=== PATIENT | male | born 1980 | race Caucasian/White ===

== ENCOUNTER 2021-06-16 22:12 | Emergency (ER) | payer MEDICARE, MEDICAID, SELFPAY ==
--- NOTE | 2021-06-16 | ECG_ITS ---
Test Reason : CP Blood Pressure : / mmHG Vent. Rate : 093 BPM Atrial Rate : 093 BPM P-R Int : 132 ms QRS Dur : 112 ms QT Int : 366 ms P-R-T Axes : 035 -31 002 degrees QTc Int : 455 ms Normal sinus rhythm Left axis deviation Incomplete right bundle branch block Possible Anterior infarct (cited on or before 20-OCT-2012) Abnormal ECG When compared with ECG of 16-MAR-2019 21:38, No significant changes seen Referred By: Generic ED Physician Electronically Signed By:DONNIE GALINDO
--- NOTE | ~2021-06-16 | XR_ITS ---
EXAMINATION: XR CHEST CLINICAL INFORMATION: Chest pain COMPARISON: None TECHNIQUE: 2 views of the chest were obtained. FINDINGS: No significant abnormality is noted involving the heart, lungs, mediastinum, bony thorax or soft tissues. XR/XR chest 2V IMPRESSION: Unremarkable examination.
[2021-06-16 22:29] VITALS: BP 133/94; PULSE 96; RESP 14; TEMP 36.9; O2SAT 98; BMI 28.3
[2021-06-16 23:07] LABS: MANUAL DIFF FLAG NO
[2021-06-16 23:08] LABS: Basophils Percent Auto 0.3 % (0-2); Eosinophils Absolute Auto 0.2 X10*3/uL (0.0-0.4); Eosinophils Percent Auto 2.8 % (0-4); Hematocrit 40.2 % (42.0-52.0); Hemoglobin 13.7 g/dl (14.0-18.0); Imm Gran Abs Auto 0.01 X10*3/uL (0.00-0.03); Imm Gran Pct Auto 0.1 % (0.0-0.4); Lymphocytes Absolute Auto 2.6 X10*3/uL (1.2-4.9); Mean Corpuscular HGB Conc 34.1 g/dl (31.0-36.0); Mean Corpuscular Hemoglobin 28.5 pg (27.0-33.0); Mean Corpuscular Volume 83.6 fL (80.0-98.0); Mean Platelet Volume 9.6 fL (9.4-12.4); Monocytes Absolute Auto 0.6 X10*3/uL (0.1-1.2); Monocytes Percent Auto 8.2 % (2-11); Neutrophils Absolute Auto 3.3 x10*3/uL (2.0-8.3); Neutrophils Percent Auto 49.6 % (45-73); Platelet Count 209 X10*3/uL (160-400); Red Blood Count 4.81 X10*6/uL (4.60-5.80); Red Cell Distribution Width 12.7 % (11.0-16.0); White Blood Count 6.7 X10*3/uL (4.8-10.8)
[2021-06-16 23:22] LABS: COVID-19 Test Negative (Negative)
[2021-06-16 23:23] LABS: Alanine Aminotransferase 34 U/L (0-40); Alkaline Phosphatase 98 U/L (39-117); Anion Gap 10 (12-20); Aspartate Amino Transferase 20 U/L (5-37); Bilirubin Direct < 0.2 mg/dL (0.0-0.5); Bilirubin Total 0.3 mg/dL (0.0-1.0); Blood Urea Nitrogen 11 mg/dL (9-16); Calcium 9.1 mg/dL (8.4-10.2); Carbon Dioxide 28 mmol/L (22-29); Chloride 105 mmol/L (96-108); Creatinine Clr Calc Pharmacy 121.1; Estimated Glomerular Filt Rate > 60; Glucose Random 91 mg/dL (60-115); Lipase 15 U/L (8-78); Potassium 3.6 mmol/L (3.3-5.1); Sodium 139 mmol/L (135-145); Total Protein 7.5 g/dL (6.5-8.0)
[2021-06-16 23:26] LABS: Troponin-I High Sensitivity < 3.5 ng/L (<3.5-35.0)
[2021-06-17 03:37] LABS: Appearance Urine CLEAR; Color Urine YELLOW; Glucose Urine UA NEG (NEG); Leukocyte Esterase Urine NEG (NEG); Nitrite Urine NEG (NEG); Specific Gravity - Urine 1.025 (1.005-1.025); Urine Blood NEG (NEG); Urine Ketones NEG (NEG); Urine Protein NEG (NEG-TRACE)
--- NOTE | 2021-06-17 03:52 | ED.CHESTPAIN ---
HPI - Chest Pain General Chief Complaint: Chest Pain Stated Complaint: Chest pain Time Seen by Provider: 06/16/21 23:06 Source: patient Mode of arrival: ambulatory History of Present Illness HPI narrative: 40-year-old male with history of schizophrenia states that he was driving into work at approximately 20:00 this evening when he developed some pinching, chest pain, nonradiating and not associated with shortness of breath, nausea, dizziness but states some diaphoresis. Patient denies any association with fever, chills, worsening with deep inspiration or movement. Patient is currently asymptomatic and states that the pain was always transient. Otherwise, patient denies any GI or symptoms. Related Data Allergies Allergy/AdvReac Type Severity Reaction Status Date / Time acetaminophen [From TYLENOL] Allergy Unknown VOMITING Unverified 12/03/19 17:48 Review of Systems Review of Systems: Pertinent positives and negatives as stated in HPI 10 point review of systems is otherwise negative. PMFSH Past Medical History Source: nursing notes reviewed Social History Social History Advance Directives: No Physical Exam Vital Signs: Vital Signs: Last Vital Signs Temp 98.5 F 06/16/21 22:29 Pulse 96 06/16/21 22:29 Resp 14 06/16/21 22:29 BP 133/94 H 06/16/21 22:29 Pulse Ox 98 06/16/21 22:29 BMI result Body Mass Index 28.3 VITAL SIGNS: Reviewed. GENERAL: Well developed, well nourished, in no acute distress. HEAD: Normocephalic/atraumatic EYES: PERRLA, EOMI EARS: Ext canals without abnormality, TMs non-bulging and non-erythematous NOSE: Nares patent bilateral OROPHARYNX: no oral lesions noted, posterior pharynx clear and non-erythematous without noted tonsillar enlargement/erythema/exudates NECK: Supple, no adenopathy LUNGS: Normal breath sounds. No adventitious sounds or accessory muscle use. SpO2<98> CARDIOVASCULAR: Regular rate and rhythm without noted murmurs ABDOMEN: Soft, non-tender, non-distended with bowel sounds. SKIN: Inspection of the skin reveals no rashes NEUROLOGIC: Alert and oriented x 4. Strength and sensation to light touch were grossly intact x 4. Course Course Course Narrative: 40-year-old male with history and clinical presentation most consistent with a costochondritis as patient is PERC negative and on review of all investigations there are no acute findings to suggest pancreatitis, pneumonia. Patient was informed of all results. Patient was instructed to follow-up with his primary care provider on Saturday morning. Patient is otherwise discharged home in stable condition. MDM - Chest Pain Lab Data Result diagrams: 06/16/21 22:59 06/16/21 22:59 Labs: Lab Results 06/16/21 06/16/21 06/16/21 Range/Units 22:59 22:59 22:59 WBC 6.7 (4.8-10.8) X10*3/uL RBC 4.81 (4.60-5.80) X10*6/uL Hgb 13.7 L (14.0-18.0) g/dl Hct 40.2 L (42.0-52.0) % MCV 83.6 (80.0-98.0) fL MCH 28.5 (27.0-33.0) pg MCHC 34.1 (31.0-36.0) g/dl RDW 12.7 (11.0-16.0) % Plt Count 209 (160-400) X10*3/uL MPV 9.6 (9.4-12.4) fL Immature Gran % (Auto) 0.1 (0.0-0.4) % Neut % (Auto) 49.6 (45-73) % Lymph % (Auto) 39.0 (20-40) % [place] % (Auto) 8.2 (2-11) % Eos % (Auto) 2.8 (0-4) % Baso % (Auto) 0.3 (0-2) % Lymph # (Auto) 2.6 (1.2-4.9) X10*3/uL [place] # (Auto) 0.6 (0.1-1.2) X10*3/uL Eos # (Auto) 0.2 (0.0-0.4) X10*3/uL Baso # (Auto) 0.0 (0.0-0.2) X10*3/uL Abs Immat Gran (auto) 0.01 (0.00-0.03) X10*3/uL Absolute Neuts (auto) 3.3 (2.0-8.3) x10*3/uL Absolute Nucleated RBC 0.000 (0.0-0.012) X10*3/uL Nucleated RBC % (auto) 0.0 (0.0-0.2) /100WBC Sodium 139 (135-145) mmol/L Potassium 3.6 (3.3-5.1) mmol/L Chloride 105 (96-108) mmol/L Carbon Dioxide 28 (22-29) mmol/L Anion Gap 10 L (12-20) BUN 11 (9-16) mg/dL Creatinine 0.93 (0.5-1.4) mg/dL Estim Creat Clear Calc 121.1 Estimated GFR > 60 Random Glucose 91 (60-115) mg/dL Calcium 9.1 (8.4-10.2) mg/dL Total Bilirubin 0.3 (0.0-1.0) mg/dL Direct Bilirubin < 0.2 (0.0-0.5) mg/dL AST 20 (5-37) U/L ALT 34 (0-40) U/L Alkaline Phosphatase 98 (39-117) U/L Troponin I High Sens < 3.5 (<3.5-35.0) ng/L Total Protein 7.5 (6.5-8.0) g/dL Albumin 4.0 (3.5-5.0) g/dL Lipase 15 (8-78) U/L Urine Color Urine Appearance Urine pH (5.0-8.0) Ur Specific [place] (1.005-1.025) Urine Protein (NEG-TRACE) MG/DL Urine Glucose (UA) (NEG) MG/DL Urine Ketones (NEG) MG/DL Urine Blood (NEG) Urine Nitrite (NEG) Ur Leukocyte Esterase (NEG) COVID-19 (ISABEL) (Negative) COVID-19 Clin Com 06/16/21 06/17/21 Range/Units 22:59 03:31 WBC (4.8-10.8) X10*3/uL RBC (4.60-5.80) X10*6/uL Hgb (14.0-18.0) g/dl Hct (42.0-52.0) % MCV (80.0-98.0) fL MCH (27.0-33.0) pg MCHC (31.0-36.0) g/dl RDW (11.0-16.0) % Plt Count (160-400) X10*3/uL MPV (9.4-12.4) fL Immature Gran % (Auto) (0.0-0.4) % Neut % (Auto) (45-73) % Lymph % (Auto) (20-40) % [place] % (Auto) (2-11) % Eos % (Auto) (0-4) % Baso % (Auto) (0-2) % Lymph # (Auto) (1.2-4.9) X10*3/uL [place] # (Auto) (0.1-1.2) X10*3/uL Eos # (Auto) (0.0-0.4) X10*3/uL Baso # (Auto) (0.0-0.2) X10*3/uL Abs Immat Gran (auto) (0.00-0.03) X10*3/uL Absolute Neuts (auto) (2.0-8.3) x10*3/uL Absolute Nucleated RBC (0.0-0.012) X10*3/uL Nucleated RBC % (auto) (0.0-0.2) /100WBC Sodium (135-145) mmol/L Potassium (3.3-5.1) mmol/L Chloride (96-108) mmol/L Carbon Dioxide (22-29) mmol/L Anion Gap (12-20) BUN (9-16) mg/dL Creatinine (0.5-1.4) mg/dL Estim Creat Clear Calc Estimated GFR Random Glucose (60-115) mg/dL Calcium (8.4-10.2) mg/dL Total Bilirubin (0.0-1.0) mg/dL Direct Bilirubin (0.0-0.5) mg/dL AST (5-37) U/L ALT (0-40) U/L Alkaline Phosphatase (39-117) U/L Troponin I High Sens (<3.5-35.0) ng/L Total Protein (6.5-8.0) g/dL Albumin (3.5-5.0) g/dL Lipase (8-78) U/L Urine Color YELLOW Urine Appearance CLEAR Urine pH 6.0 (5.0-8.0) Ur Specific [place] 1.025 (1.005-1.025) Urine Protein NEG (NEG-TRACE) MG/DL Urine Glucose (UA) NEG (NEG) MG/DL Urine Ketones NEG (NEG) MG/DL Urine Blood NEG (NEG) Urine Nitrite NEG (NEG) Ur Leukocyte Esterase NEG (NEG) COVID-19 (ISABEL) Negative (Negative) COVID-19 Clin Com See Note ECG Data ECG #1: Attestation: I personally reviewed and interpreted this ECG as follows: Prior ECG tracings: available for review Interpretation: NSR, HR-93, no STEMI, CA/QTC are within normal limits. Discharge Plan Discharge Clinical Impression: Atypical chest pain, Costalchondritis, Cough, Lab test negative for COVID-19 virus Patient Disposition: Home, Self-Care Instructions: Chest Wall Pain (ED), Costochondritis (ED) Additional Instructions: 1. Resume all home medications as prescribed. 2. Recommend [id number] Cepacol for sore throat, ekca-cvm-montvni cough medicine for your cough. 3. Recommend [id number]-[id number] Tylenol/ibuprofen as needed for your chest wall pain. 4. Follow-up with your primary care provider on Saturday morning. Return to the ER for worsening symptoms. Referrals: Epi English III, MD [Primary Care Provider] - 2 days
[2021-06-17 03:55] VITALS: BP 139/97; PULSE 76; RESP 14; O2SAT 98
[2021-06-17] MEDS: Throat Lozenge, Medicated LOZENGE 1 LOZENGE MUCOUS MEM (03:57)
== END 2021-06-17 04:11 | disposition home or self-care (01) ==
PROVIDERS: Emergency Provider Student in an Organized Health Care Education/Training Program; PCP Internal Medicine
DX: R07.89 Other chest pain (principal); M94.0 Chondrocostal junction syndrome [Tietze]; Z20.822 Contact with and (suspected) exposure to COVID-19; R05.9 Cough, unspecified
CPT/HCPCS: 36415; 71046; 80053; 81003; 82248; 83690; 84484; 85025; 87635; 93005; 99283; 99284

== ENCOUNTER 2022-03-05 17:36 | Emergency (ER) | payer MEDICARE, MEDICAID, SELFPAY | END 2022-03-05 20:19 | disposition left against medical advice (07) | PROVIDERS: Emergency Provider Emergency Medicine; PCP Internal Medicine | DX: R05.9 Cough, unspecified (principal); J02.9 Acute pharyngitis, unspecified ==

== ENCOUNTER 2023-11-17 13:55 | Emergency (ER) | payer MEDICARE, MEDICAID, SELFPAY ==
[2023-11-17 14:58] VITALS: BP 119/85; PULSE 85; RESP 16; TEMP 36.9; O2SAT 97; BMI 27.5
--- NOTE | 2023-11-17 14:58 | ED_ITS ---
HPI - Extremity Injury (Lower) General Chief Complaint: Extremity Problem Stated Complaint: ingrown toenail Time Seen by Provider: 11/17/23 17:21 Source: patient Mode of arrival: ambulatory Limitations: no limitations History of Present Illness ED Provider: carmen morris pa-c HPI Narrative: 43-year-old male with no significant past medical history presents to the ED today for evaluation of ingrown toenail to left great toe x2 weeks. States he was seen by his PCP who prescribed him Keflex 500 mg TID. Patient admits that he was not taking this as prescribed however eventually completed the course. Reports continued pain and swelling around the nail fold of his left great toenail. Attempted to soak in Epsom salt yesterday without relief. No qmsb-pvm-cnwpnuj pain meds prior to arrival. Denies fever, chills, drainage from the area. Denies trauma/ injury to the toe. Related Data Previous Rx's ?Medication ?Instructions ?Recorded doxycycline hyclate 100 mg tablet 100 mg PO BID 7 days #14 tabs 11/17/23 Allergies Allergy/AdvReac Type Severity Reaction Status Date / Time No Known Allergies Allergy Verified 11/17/23 15:00 Review of Systems Review of Systems: Constitutional: No fever, chills, fatigue, night sweats, weight changes ENT/Mouth: No ear pain, hearing loss, nasal congestion, sinus pain, rhinorrhea, sore throat Eyes: No eye pain, swelling, redness, vision changes, discharge Cardio: No chest pain, palpitations, VALLE, orthopnea, peripheral edema Pulm: No SOB, cough, sputum, wheezing, dyspnea, hemoptysis GI: No nausea, vomiting, hematemesis, abdominal pain, diarrhea, constipation, hematochezia, melena : No irregular bleeding, dysuria, frequency, urgency, hesitancy, hematuria, flank pain, urinary flow changes, urinary incontinence or retention MSK: No back pain, neck pain, joint pain, myalgias Skin: No lesions, rashes, +ingrown toe nail Neuro: No weakness, numbness, paresthesias, LOC, dizziness, headache Psych: No anxiety/panic, depression, SI/HI, AH/VH All other systems reviewed and are negative. [facility] Past Medical History Attestation statement: The following information was validated with the patient. Source: old records reviewed and nursing notes reviewed Social History Social History Advance Directives: No Advance Directives Information Provided: No Physical Exam Vital Signs: Vital Signs: Last Vital Signs Temp 98.4 F 11/17/23 14:58 Pulse 85 11/17/23 14:58 Resp 16 11/17/23 14:58 BP 119/85 11/17/23 14:58 Pulse Ox 97 11/17/23 14:58 O2 Del Method Room Air 11/17/23 14:58 BMI result Body Mass Index 27.5 Vital signs stable, afebrile. General: Well appearing, in no acute distress. Skin: Warm, dry, intact. +noted swelling/ erythema surrounding the left great toe nail. no noted drainage or pointing. ingrown nail along lateral nail fold. Head: Normocephalic, atraumatic. EENT: Hearing is intact b/l. Conjunctiva clear. Sclera is anicteric. PERRLA. EOM intact. Moist mucous membranes.? Neck: Supple without LAD. FROM. Trachea midline.? Cardiac: Chest wall symmetric. RRR Lungs: Normal respiratory effort without accessory muscle use Neuro: AOx3. Normal speech. Ambulating with steady gait. Psych: Appropriate mood and affect. Responds appropriately to questions. Course Course Course Narrative: This is a Rapid Medical Exam performed in triage by Yanet Ramos PA-C. Full HPI, ROS and PE to be performed by primary ED provider. 43 yo M presenting to the ED c/o painful ingrown toenail to L great toe x2 weeks. Took abx w/o relief. also has been soaking PE: +ingrown toenail to L great toe. no surrounding erythema [place] [facility] Reevaluation(s) Reevaluation #1: 9521 -- ingrown toenail of left great toe lateral nail fold removed. Patient tolerated procedure well. Patient placed in postop shoe for comfort. Pressure dressing applied. Bleeding controlled. Advised patient to follow-up with galley worker. He tells me that he has an appointment for December. Will provide him with referral to [facility] [place] to see if he can get an appointment sooner. Patient has remained stable throughout ED visit today. Discussed worrisome signs and symptoms and when to return to the ED. All questions answered at this time. Patient is agreeable with disposition and stable for discharge. Medications Administered Discontinued Medications Generic Name Dose Route Start Last Admin Trade Name Mady PRN Reason Stop Dose Admin Lidocaine HCl 5 ml 11/17/23 17:21 11/17/23 17:49 Lidocaine Hcl 1 % Mpf 5 Ml Vial INFILTRATI 11/17/23 17:22 5 ml ONCE ONE Administration Lidocaine HCl 5 ml 11/17/23 17:22 11/17/23 17:49 Lidocaine Hcl 1 % Mpf 5 Ml Vial INFILTRATI 11/17/23 17:23 5 ml ONCE ONE Administration Medical Decision Making Medical Decision Making MDM Narrative: 43-year-old male with no significant past medical history presents to the ED today for evaluation of ingrown toenail to left great toe x2 weeks. Vital signs stable. Afebrile. On exam, there is noted swelling/ erythema surrounding the lef t great toe nail. no noted drainage or pointing. ingrown nail along lateral nail fold. 2+ PT/DP pulse intact. Ambulating with steady gait. Differential diagnosis includes paronychia, ingrown toenail, cellulitis Plan for ingrown toenail removal, paronychia drainage and disposition Differential Diagnosis Differential Diagnoses: The differential diagnosis associated with the presentation includes As above Admission/Observation Not indicated Prescription Management I considered prescription management with: Pain Medication and Antibiotic (Doxycycline) Social Determinants Patient?s care significantly limited by Social Determinants of Health including: Other Social Determinant of Health Procedures Abscess I/D Site: foot (great toe) Side (if applicable): left Local Anesthetic: lidocaine 1% Amount of anesthesia used (mL): 10 Technique: incised with blade Amount of fluid expressed (mL): 2 Sent for culture/gram staining?: No Irrigation: Yes Packing used?: none Complications: pain Critical Care Time Critical Care Time Critical Care Time: No Discharge Plan Discharge Clinical Impression: Paronychia of great toe of left foot, Ingrowing toenail of left foot Patient Disposition: Home, Self-Care Instructions: Paronychia (ED), Ingrown Nail (ED), Nail Removal (ED) Additional Instructions: You were seen in the ED today for ingrown toenail/ infection. The ingrown toe nail was removed with dressing applied. You may remove the dressing tomorrow morning. You were also provided with a postop shoe to wear as needed for comfort. Doxycycline is an antibiotic that has been sent to your pharmacy for treatment. Take this twice daily for 7 days. Take this as prescribed, do not miss any doses as this may cause infection to persist or worsen. Continue soaking the toe in Epsom salt. You may also apply warm compresses to help draw the infection out. Keep your appointment with galley worker in December. You have also been provided with a referral to [facility] pod[facility]. You may call them to see if they can get you in any sooner. They will not call you. Follow up with your PCP as needed. Return with new or worsening symptoms. In the case of an emergency call 911. Prescriptions: New doxycycline hyclate 100 mg tablet 100 mg PO BID 7 Days Qty: 14 0RF Referrals: Hermelindo Dent MD [Physician] - Print Language: Latvian
[2023-11-17] MEDS: Lidocaine HCl 1 % MPF 5 ML VIAL INFILTRATI ×2 (17:49)
[2023-11-17 18:27] VITALS: BP 140/78; PULSE 82; RESP 19; TEMP 36.6; O2SAT 98
[2023-11-17 18:28] VITALS: BP 140/78; PULSE 82; RESP 19; TEMP 36.6; O2SAT 98
== END 2023-11-17 18:32 | disposition home or self-care (01) ==
PROVIDERS: Emergency Provider Emergency Medicine Emergency Medical Services; PCP Internal Medicine
DX: L03.032 Cellulitis of left toe (principal); L60.0 Ingrowing nail
CPT/HCPCS: 10060; 99282; 99284

== ENCOUNTER 2024-05-02 01:28 | Emergency (ER) | payer MEDICARE, MEDICAID, SELFPAY ==
[2024-05-02 01:33] VITALS: BP 137/77; PULSE 80; O2SAT 100
[2024-05-02 01:39] VITALS: BP 116/84; PULSE 75; RESP 18; TEMP 36.4; O2SAT 98; BMI 27.3
[2024-05-02 02:05] LABS: Appearance Urine Clear; Color Urine Yellow; Glucose Urine UA Negative (Negative); Leukocyte Esterase Urine Negative (Negative); Nitrite Urine Negative (Negative); PH 6.5 (5.0-9.0); Specific Gravity - Urine 1.015 (1.005-1.025); Urine Blood Negative (Negative); Urine Ketones Negative (Negative); Urine Protein Negative (Neg-Trace)
[2024-05-02 02:10] LABS: Bacteria Urine None Seen (None Seen); Hyaline Casts Urine 0-2 /LPF (0-2); RBC Urine 0-2 /HPF (0-2); Squamous Epithelial Cell Urine 0-2 /HPF (0-2); WBC Urine 0-5 /HPF (0-5)
--- NOTE | 2024-05-02 02:14 | ED_ITS ---
HPI - General Adult General Chief complaint: General Medical Stated complaint: MEDICAL EVAL Time Seen by Provider: 05/02/24 03:57 Source: patient and EMS Mode of arrival: EMS Limitations: no limitations History of Present Illness ED Provider: HPI narrative: Patient works as a systems security analyst noted to be very sleepy and passing out recently diagnose schizophrenia patient denied any substance abuse says that he is very sleepy because he did not sleep well denies any substance abuse after arrival patient noted to be sleeping no chest pain no shortness a breath Related Data Previous Rx's ?Medication ?Instructions ?Recorded doxycycline hyclate 100 mg tablet 100 mg PO BID 7 days #14 tabs 11/17/23 Allergies Allergy/AdvReac Type Severity Reaction Status Date / Time No Known Allergies Allergy Verified 05/02/24 01:40 Review of Systems Review of Systems: Yes all other systems are reviewed and are negative [facility] Social History Social History Smoked in Last 30 Days: No Use of substances other than those prescribed or required for medical reasons: No Advance Directives: No Advance Directives Information Provided: Yes Physical Exam ED Vital Signs: Vital Signs - 24 hr 05/02/24 06:16 05/02/24 06:23 Temperature 96.9 F 96.9 F Pulse Rate 73 73 Respiratory Rate 12 12 Blood Pressure 149/97 H 149/97 H Pulse Oximetry 99 99 Oxygen Delivery Method Room Air Room Air BMI result Body Mass Index 27.3 Appearance: Alert. Oriented X3. No acute distress. Sleepy but arousable Eyes: PERRLA, No Nystagmus ENT: Pharynx normal. Oral Mucosa moist atraumatic normocephalic Neck: Normal inspection. Neck supple. CVS: Normal heart rate and rhythm. Pulses normal. Respiratory: No respiratory distress. Equal air entry bilateral, no wheezing/rales/rhonchi Abdomen: Soft and nontender. Bowel sounds are present, no mass palpable, no CVA tenderness Skin: Skin warm and dry. Normal skin color. Normal skin turgor. Extremities: No lower extremity edema. No calf tenderness Neuro: Oriented X 3. No motor deficit. No sensory deficit.No cerebellar signs , cranial nerves II-XII intact Medical Decision Making Medical Decision Making [facility] Narrative: Patient is very lethargic says that he is very tired no new medication per records patient has been on Klonopin and Zyprexa your tox is negative were any drugs patient woke up and alert oriented x3 ambulatory in steady gait will discharge patient home advised not to combine his medication together sleep well before going to the work Lab Data [facility] Lab Attestation statement: I reviewed the patient's lab results. Labs: Lab Results 05/02/24 05/02/24 Range/Units 01:54 01:55 Urine Color Yellow Urine Appearance Clear Urine pH 6.5 (5.0-9.0) Ur Specific [place] 1.015 (1.005-1.025) Urine Protein Negative (Neg-Trace) mg/dL Urine Glucose (UA) Negative (Negative) mg/dL Urine Ketones Negative (Negative) mg/dL Urine Blood Negative (Negative) Urine Nitrite Negative (Negative) Ur Leukocyte Esterase Negative (Negative) Urine RBC 0-2 (0-2) /HPF Urine WBC 0-5 (0-5) /HPF Ur Squamous Epith Cells 0-2 (0-2) /HPF Urine Bacteria None Seen (None Seen) Hyaline Casts 0-2 (0-2) /LPF Urine Opiates Screen Not Detected (Not Detect) Ur Buprenorphine Scrn Not Detected (Not Detect) ng/mL Ur Oxycodone Screen Not Detected (Not Detect) ng/mL Urine Methadone Screen Not Detected (Not Detect) ng/mL Urine Fentanyl Screen Not Detected (Not Detect) Ur Barbiturates Screen Not Detected (Not Detect) Ur Phencyclidine Scrn Not Detected (Not Detect) Ur Amphetamines Screen Not Detected (Not Detect) U Benzodiazepines Scrn Not Detected (Not Detect) Urine Cocaine Screen Not Detected (Not Detect) U Marijuana (THC) Screen Not Detected (Not Detect) Discharge Plan Discharge Clinical Impression: Lethargy Patient Disposition: Home, Self-Care Instructions: Fatigue (ED) Additional Instructions: Sleep well and take your medication as prescribed do not take any medication which is not prescribed Follow up with your PCP Prescriptions: No Action doxycycline hyclate 100 mg tablet 100 mg PO BID 7 Days Qty: 14 0RF Interventions: ED Discharge Assessment Last Done: 05/02/24 06:23 Discharge Date/Time: 05/02/24 06:24 Print Language: Arabic
[2024-05-02 02:21] LABS: Amphetamine Screen Urine Not Detected (Not Detect); Barbiturates, Urine Not Detected (Not Detect); Benzodiazepines Screen Urine Not Detected (Not Detect); Buprenorphine Scr Not Detected (Not Detect); Cannabinoid Screen Urine Not Detected (Not Detect); Cocaine Screen Urine Not Detected (Not Detect); Fentanyl, urine Not Detected (Not Detect); Methadone Screen, Urine Not Detected (Not Detect); Opiate Screen Urine Not Detected (Not Detect); Oxycodone Screen Urine Not Detected (Not Detect); Phencyclidine Screen Urine Not Detected (Not Detect)
[2024-05-02 06:16] VITALS: BP 149/97; PULSE 73; RESP 12; TEMP 36.1; O2SAT 99
[2024-05-02 06:23] VITALS: BP 149/97; PULSE 73; RESP 12; TEMP 36.1; O2SAT 99
== END 2024-05-02 06:24 | disposition home or self-care (01) ==
PROVIDERS: Emergency Provider Internal Medicine; PCP Internal Medicine
DX: R53.83 Other fatigue (principal); Z51.81 Encounter for therapeutic drug level monitoring; Z79.899 Other long term (current) drug therapy
CPT/HCPCS: 80307; 81001; 99284

== ENCOUNTER 2024-11-04 11:22 | Emergency (ER) | payer OTHER, SELFPAY ==
--- NOTE | ~2024-11-04 | CT_ITS ---
EXAMINATION: CT HEAD WITHOUT CONTRAST CLINICAL INFORMATION: Trauma COMPARISON: None available. TECHNIQUE: Contiguous axial imaging was performed from the skull base to vertex without intravenous administration of contrast. This CT examination was performed using dose optimization techniques as appropriate, variously including the following: *Automated exposure control *Adjustment of mA and/or kV according to patient size (this includes techniques or standardized protocols for targeted exams where dose is matched to indication/reason for exam; i.e. extremities or head) *Use of iterative reconstruction technique DLP: 1071 mGY*cm FINDINGS: There is no acute ischemic change. There is no intracranial hemorrhage. There is no mass-effect or midline shift. Basal cisterns and ventricles are within normal limits for age/cerebral volume. Orbits are symmetrical and unremarkable. Paranasal sinuses and mastoid air cells are pneumatized. There are no bony abnormalities. CT/CT head/brain wo IV con IMPRESSION: No acute intracranial abnormality. Electronically signed by: Izaiah Molina MD 11/04/2024 02:08 PM EDT
--- NOTE | ~2024-11-04 | CT_ITS ---
EXAMINATION: CT CERVICAL SPINE WITHOUT CONTRAST CLINICAL INFORMATION: Trauma COMPARISON: None available. TECHNIQUE: Axial imaging was performed from the base of the skull through T2 without IV contrast. Coronal and sagittal reformatted images were generated from the original axial data set. ALARA: The examination used one or more of the following radiation dose reduction techniques: Automated exposure control, iterative reconstruction, and/or adjustment of mA and/or KV. DLP: 1071 mGY*cm FINDINGS: There is straightening of cervical lordosis. There is no prevertebral soft tissue swelling. Small uncovertebral osteophyte are present throughout most of the first cervical spine. C6-7: There is mild disc space narrowing with endplate and uncovertebral osteophytes resulting in [id number] foraminal narrowing on the left and mild on the right. No fracture line is identified. CT/CT cervical spine wo IV con IMPRESSION: Degenerative changes most advanced at C6-7. No acute abnormality was evident. Electronically signed by: Izaiah Molina MD 11/04/2024 02:11 PM EDT
--- NOTE | ~2024-11-04 | XR_ITS ---
EXAMINATION: XR CHEST CLINICAL INFORMATION: trauma COMPARISON: June 17, 2021 TECHNIQUE: 2 views of the chest were obtained. FINDINGS: No hyperinflation. No consolidation pleural effusion or pneumothorax. Cardiomediastinal silhouette size is normal. Mild multilevel thoracic spondylosis. XR/XR chest 2V IMPRESSION: No acute airspace disease. Stable chest. Electronically signed by: Pedrito Means MD 11/04/2024 12:41 PM EDT
[2024-11-04 11:32] VITALS: BP 130/80; PULSE 83; O2SAT 99
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
[2024-11-04 12:23] VITALS: BP 124/72; PULSE 78; RESP 18; TEMP 36.2; O2SAT 98; BMI 25.9
[2024-11-04 15:13] VITALS: BP 124/92; PULSE 70; RESP 16; TEMP 36.4; O2SAT 98
[2024-11-04 15:23] VITALS: BP 124/92; PULSE 70; RESP 16; TEMP 36.4; O2SAT 98
--- OUTSIDE RECORDS SUMMARY | 2024-11-04 16:13 | XMS_ITS | Clinical Summary ---
Author Organization [facility] [place] Address [address] [place] [address] Care Team Providers [employer] Name Role Phone Epi English MD Primary Care Provider [phone] Allergies Active Allergy Reactions Criticality Noted Date Comments Other 04/07/2014 Seasonal Allergies Other Reaction(s): Runny Nose/Rhinitis Medications benztropine (COGENTIN) 1 mg tablet TAKE 1 TABLET BY MOUTH DAILY 8 Active cephalexin (KEFLEX) 500 mg capsule Take 1 Capsule by mouth 3 times daily (with meals). 4 Active OLANZapine (ZyPREXA) 10 mg tablet 3 Active OLANZapine (ZyPREXA) 7.5 mg tablet 3 Active silver sulfADIAZINE (SILVADENE, SSD) 1 % cream Apply topically to nail bed daily 4 Active butalbital-acetam inophen-caffeine (FIORICET, ESGIC) 50-325-40 mg per tablet Take 1 tablet by mouth every 4 (four) hours if needed for headaches. 30 tablet 5 Active omeprazole (PriLOSEC) [address] capsule TAKE 1 CAPSULE BY MOUTH DAILY 90 capsule 1 5 Active Active Problems Problem Noted Date Diagnosed Date Weight loss 07/24/2017 Abnormal CXR 07/23/2017 Absolute anemia 07/23/2017 Scrotal cyst 06/06/2017 Overview (01/27/2024): Scrotal US: IMPRESSION: No significant scrotal pathology. 4 mm extratesticular right hemiscrotal calcification likely representing a scrotolith. Referred to urology. PLMD (periodic limb movement disorder) 7 Snoring 11/05/2016 Overview (01/27/2024): 10/2016 Diagnostic study did not show sleep apnea. Referred to primary care for PLMD. GERD (gastroesophageal reflux disease) 6 Migraine 03/14/2016 Dyspepsia 01/13/2016 Schizophrenia (CMS/HCC V24, CMS/HCC V28) 015 Encounters Date Type Department Care Team Description 10/16/2024 3:00 PM EDT Office Visit Adult Medicine [address] [phone] Epi English MD Gastroesophageal reflux disease without esophagitis (Primary Dx); Schizophrenia, unspecified type (CMS/HCC V24, CMS/HCC V28); High cholesterol; Other migraine without status migrainosus, not intractable 09/28/2024 1:00 PM EDT Office Visit [address] [phone] Orly Varela NP Care plan discussed with patient (Primary Dx); Schizophrenia, unspecified type (CMS/HCC V24, CMS/HCC V28); PLMD (periodic limb movement disorder); Other migraine without status migrainosus, not intractable 08/21/2024 9:30 AM EDT Clinical Support [address] [phone] Visit for suture removal (Primary Dx) 08/19/[address] [phone] Maryjane Elder MA 08/07/2024 10:00 AM EDT Procedure visit [address] [phone] Balwinder Gurrola MD Compound nevus (Primary Dx) from Last 3 Months Immunizations Name Administration Dates Next Due Influenza Quadravalent, MDCK , 0.5ml, with preservative (Flucelvax) 6mo and older 12/16/2016 Influenza trivalent, 0.5mL, preservative free (Fluarix; FluLaval; Fluzone) ages 6mo and older (Afluria) 3 years and older 01/10/2016,12/20/2014 PPD Test 01/10/2016,06/01/2014 Pfizer SARS-CoV-2 COVID-19, mRNA, LNP-S, preservative free 02/17/2021 Tdap Tetanus diptheria acell ular pertussis (Boostrix; Adacel) 7yo and older 07/20/2021,05/24/2009 Surgical History Surgery Date Site/Laterality Comments OTHER SURGICAL HISTORY PROCEDURE: DENIES PREVIOUS SURGERY Medical History Medical History Date Comments Schizophrenia ([facility] V24, [facility] V28) DX:Schizophrenia ([facility]) Family History Medical History Relation Name Comments Diabetes Maternal Grandfather Asthma Mother Relation Name Status Comments Father Alive Maternal Grandfather Maternal Grandmother Mother Alive Paternal Grandfather Paternal Grandmother Sister Alive Social History Tobacco Use Types Packs/Day Years Used Date Smoking Tobacco: Never Smokeless Tobacco: Never Tobacco Cessation:Counseling Given: Not Answered Alcohol Use Standard Drinks/Week Comments Yes 0 (1 standard drink = 0.6 oz pur e alcohol) Housing Instability Answer Date Recorde d Are you worried that in the next 2 months you may not have stable housing? No 06/11/2024 Food Access & Nutrition Answer Date Rec orded Do you have access to a vari ety of food including fruits and vegetables? Yes 06/11/2024 Access to Healthcare Answer Date Record ed Within the last 3 months, ho w many times did you visit the emergency department for your medical care? 1 06/11/2024 Health Literacy Answer Date Recorded How often do you need to hav e someone help you when you read instructions, pamphlets, or other written material from your doctor or pharmacy? Never 06/11/2024 Caregiver: How often do you need to have someone help you when you read instructions, pamphlets, or other written material from your doctor or pharmacy? Not on file 06/11/2024 Financial Risk Answer Date Recorded How hard is it for you to pa y for the very basics like food, housing, medical care, and air conditioning / heating? Not very hard 06/11/2024 Transportation Answer Date Recorded Has the lack of transportati on kept you from meetings, work, or from getting things needed for daily living? No Has the lack of transportati on kept you from medical appointments or from getting medications? No 06/11/2024 Social Isolation Answer Date Recorded How often do you feel lonely or isolated from th ose around you? Never 06/11/2024 Food Risk Answer Date Recorded Within the past 12 months we worried whether our food would run out before we got money to buy more. Never true 06/11/2024 Within the past 12 months th e food we bought just didn't last and we didn't have money to get more. Never true 06/11/2024 Dependent Care Answer Date Recorded Do you need help finding or paying for care for your loved ones. For example, child day care teacher or elderly care for an older adult? No 06/11/2024 Education Answer Date Recorded Do you think completing more education or training, like finishing a GED, going to college, or learning a trade, would be helpful for you? No 06/11/2024 Employment and Income Answer Date Recor ded During the last four weeks, have you been actively looking for work? No 06/11/2024 Living Situation Answer Date Recorded What is your living situation? 0 06/11/2024 Sex and Gender Information Value Date Recorded Sex Assigned at Not on file Legal Sex Male 11:39 PM EDT Gender Identity Not on file Sexual Orientation Not on file Obstetrics History Last Filed Vital Signs Vital Sign Reading Time Taken Comments Blood Pressure 112/72 10/16/2024 2:46 PM EDT Pulse 80 10/16/2024 2:46 PM EDT Temperature 36.6 C (97.9 F) 10/16/2024 2:46 PM EDT Respiratory Rate 14 10/16/2024 2:46 PM EDT Oxygen Saturation 98% 10/16/2024 2:46 PM EDT Inhaled Oxygen Concentration - - Weight 83.3 kg (183 lb 11.2 oz) 10/16/2024 2:46 PM EDT Height 177.8 cm (5' 10 ) 10/16/2024 2:46 PM EDT Body Mass Index 26.36 10/16/2024 2:46 PM EDT Plan of Treatment Upcoming Encounters Date Type Department Care Team (Late st Contact Info) Description 12/23/2024 9:30 AM EDT Office Visit Adult Medicine [address] [phone] Epi English MD [address] [place] [phone] 06/16/2025 9:00 AM EDT Office Visit Adult [address] [phone] Epi English MD [address] [place] [address] [phone] Health Maintenance Due Date Last Done Comments Hepatitis B Vaccines (1 of 3 - 19+ 3-dose series) 2001 Medicare Annual Wellness Visit 12/23/2020 COVID-19 Vaccine (2023-2 5 season) 2023 02/17/2021, 08/10/2020, 07/20/2020 Influenza Vaccine (#1) 2024 7, 01/10/2016, 12/20/2014 Social Influencers of Health Screening 06/11/2025 06/11/2024 Cholesterol Screening (Lipid Panel) 06/11/2029 06/11/2024, 06/10/2023 DTaP,Tdap,and Td Vaccines (3 - Td or Tdap) 07/21/2031 07/20/2021, 05/24/2009 HIV Screening Completed 05/01/2017 Hepatitis C Screening Completed 05/01/2017 Depression Screening Completed 06/10/2024, 06/10/2023 HIB Vaccines Aged Out No longer eligi ble based on patient's age to complete this topic HPV Vaccines Aged Out No longer eligi ble based on patient's age to complete this topic Hepatitis A Vaccines Aged Out No long er eligible based on patient's age to complete this topic IPV Vaccines Aged Out No longer eligi ble based on patient's age to complete this topic MMR Vaccines Aged Out No longer eligi ble based on patient's age to complete this topic Meningococcal ACWY Vaccine Aged Out N o longer eligible based on patient's age to complete this topic Meningococcal B Vaccine Aged Out No l onger eligible based on patient's age to complete this topic Pneumococcal Vaccine: Pediatrics (0 to 5 Years) and At-Risk Patients (6 to 49 Years) Aged Out No longer eligible b ased on patient's age to complete this topic RSV Immunization Patients Under 20 months Aged Out No longer eligible b ased on patient's age to complete this topic Varicella Vaccines Aged Out No longer eligible based on patient's age to complete this topic Procedures Procedure Name Priority Date/Time Associated Diagnosis Comments SUTURE REMOVAL Routine 08/21/2024 11:50 AM EDT Visit for suture removal TISSUE EXAM Routine 08/07/2024 10:49 AM EDT Compound nevus LIPID PANEL WITH REFLEX TO DIRECT LDL Routine 06/11/2024 9:59 AM EDT Routine physical examination Screening, lipid DEPRESSION SCREENING Routine 06/10/2023 HEPATITIS C SCREENING Routine 05/01/2017 HIV SCREENING Routine 05/01/2017 from Last 3 Months or Most Recently Relevant to Health Maintenance Results * SUTURE REMOVAL (08/21/2024 11:50 AM EDT) Isela Pace MA - 08/21/2024 11:50 AM EDT Isela Erickson MA 08/21/2024 11:51 AM Suture Removal Date/Time: 08/21/2024 11:50 AM Performed by: Isela Erickson MA Authorized by: Balwinder Gurrola MD Procedure details: Wound appearance: No signs of infection, good wound healing and clean Number of sutures removed: 5 Post-procedure details: Post-removal: Antibiotic ointment applied Procedure completion: Tolerated us Balwinder Gurrola MD IN CLINIC/BEDSIDE ORDERABLES Fi nal Result * Tissue Exam (08/07/2024 10:49 AM EDT) Final Diagnosis Skin, left midback-excisio n: -BENIGN MELANOCYTIC NEVUS, COMPOUND TYPE, ASSOCIATED WITH CICATRIX (BIOPSY SITE SCAR) -Deep and peripheral margins negative 08/12/2024 9:53 AM [facility] Clinical Information Compound nevus D22.9 [id number] Left Mid Back Aypical Nevi Stitch @ 3 o'clock 08/12/2024 9:53 AM [facility] Gross Description A. Other, left mid back sitch @ 3 o'clock: Labeled other . Received in formalin is a 2.4 x 1 cm oriented arceo-white skin ellipse excised to depth of 0.9 cm. There is a suture in one tip designating 3:00 per the requisition. The epidermis displays two arceo-brown macules and a 1 cm longitudinal well-healed scar. The smaller macule is 0.4 x 0.2 cm and is located 0.2 cm from the 1-2 o'clock margin. The larger macule is 0.8 x 0.7 cm and is located 0.1 cm from the 11:00 margin. The 9-12-3 o'clock margin is inked blue, the 3-6-9 o'clock margin is inked black, and the epidermis of the 3:00 tip is inked green. The specimen is serially sectioned and entirely submitted as follows: 1, en face 3:00 and 9:00 tips (3:00 epidermis inked green), two pieces 2-4, sequential transverse cross-sections from 3:00 to 9:00, two pieces each TAYLOR 08/12/2024 9:53 AM [facility] Disclaimer Unless otherwise specified, all tissue is 10% NB formalin fixed and paraffin embedded. 08/12/2024 9:53 AM [facility] Tissue Topography unknown / Unknown Non-blood Collection / Unknown 08/07/2024 10:49 AM EDT 08/07/2024 10:58 AM EDT Comment:[id number] Mid Back Ad [place] @ 3 o'clock us Balwinder Gurrola MD LAB PATHOLOGY ORDERABLES Final Result Performing Organization Address [facility]/ZIP Co de Phone Number [facility] [address] [place] [address], [place] [phone] * (ABNORMAL) Lipid panel with reflex to direct LDL (06/11/2024 9:59 AM EDT) Cholesterol 204(H) 0 - 200 mg/dL LAB CHEMISTRY METHOD 06/11/2024 1:00 PM EDT [facility] Triglycerides 127 0 - 150 mg/dL LAB CHEMISTRY METHOD 06/11/2024 1:00 PM EDT [facility] HDL 38(L) >=40 mg/dL LAB CHEMISTRY METHOD 06/11/2024 1:00 PM EDT [facility] LDL Calculated 141(H) 0 - 100 mg/dL LAB CHEMISTRY METHOD 06/11/2024 1:00 PM EDT [facility] VLDL Cholesterol Bacilio 25.4 mg/dL LAB CHEMISTRY METHOD 06/11/2024 1:00 PM EDT [facility] Non HDL Chol. (LDL+VLDL) 166(H) <145 mg/dL LAB CHEMISTRY METHOD 06/11/2024 1:00 PM EDT [facility] Chol/HDL Ratio 5.4(H) 0.0 - 4.4 LAB CHEMISTRY METHOD 06/11/2024 1:00 PM EDT [facility] Blood Venous blood specimen / Unknown Venipuncture / Unknown 06/11/2024 9:59 AM EDT 06/11/2024 9:59 AM EDT us Epi Engilsh MD LAB BLOOD ORDERABLES Final Resu lt [facility] [address] [place] [address], * Depression Screening (06/10/2023) Depression Screening Abstracted Historical Provider HEALTH MAINTENANCE Final Result * HIV Screening (05/01/2017) HIV Screening Abstracted Historical Provider MD HEALTH MAINTENANCE Final Result * Hepatitis C Screening (05/01/2017) Hepatitis C Screening Abstracted Historical Provider HEALTH MAINTENANCE Final Result from Last 3 Months or Most Recently Relevant to Health Maintenance Insurance MEDICARE [facility] MEDICARE Member Subscriber Plan / Payer (Ef fective 2024-Present) Name:ODETTE DANIEL Relation to Subscriber:Self Name:Odette Daniel Payer ID:[id number] Group ID:[id number] Type:Not on file Address: [address] [place] [address] Care Teams [employer] Relationship Specialty Start Date End Date Epi English MD [address] [place] [id number] PCP - General Internal Medicine 07/10/13
== END 2024-11-04 15:28 | disposition home or self-care (01) ==
PROVIDERS: Emergency Provider Emergency Medicine; PCP Internal Medicine
DX: S16.1XXA Strain of muscle, fascia and tendon at neck level, initial encounter (principal); M25.512 Pain in left shoulder; V43.52XA Car driver injured in collision with other type car in traffic accident, initial encounter; Y93.89 Activity, other specified; Y92.488 Other paved roadways as the place of occurrence of the external cause; Y99.8 Other external cause status
CPT/HCPCS: 70450; 71046; 72125; 99283; 99284

== ENCOUNTER → 2024-11-04 12:24 | Outpatient (BNV) | payer OTHER, MEDICARE, MEDICAID, SELFPAY | PROVIDERS: Visit Provider Radiology Diagnostic Radiology | DX: R07.9 Chest pain, unspecified (principal); M54.2 Cervicalgia; Z03.89 Encounter for observation for other suspected diseases and conditions ruled out; Z04.3 Encounter for examination and observation following other accident | CPT/HCPCS: 70450; 72125 ==